=== PATIENT | female | born 1995 | race Two or more races ===

== ENCOUNTER 2023-07-10 11:19 | Emergency (ER) | payer OTHER ==
[~2023-07-10] VITALS: Ht 167.6 cm; Wt 105.0 kg
[2023-07-10] MEDS ORDERED: AZIT500T66 PO (13:27)
[2023-07-10] MEDS ORDERED: IBUP-1456 PO (13:27)
[2023-07-10 13:30] VITALS: BP 125/74; PULSE 109; RESP 16; TEMP 97.4; O2SAT 96
[2023-07-10] MEDS: cefTRIAXone SOD 1,000 MG VL IM ONE (13:49)
== END 2023-07-10 13:56 | disposition home or self-care (01) ==
LOC: ER 11:19
DX: J03.90 Acute tonsillitis, unspecified (principal); Z79.1 Long term (current) use of non-steroidal anti-inflammatories (NSAID); Z79.2 Long term (current) use of antibiotics
CPT/HCPCS: 96372; 99283; J0696